=== PATIENT | male | born 1930 | race Caucasian/White ===

== ENCOUNTER 2017-08-22 09:48 | Inpatient (IN) | payer MEDICAID ==
[2017-08-22] MEDS: IPRATROPIUM (NEB) 0.5 MG/2.5 ML AMP INH (11:48)
[2017-08-22] MEDS: ALBUTEROL 0.5% (NEB) 2.5 MG/0.5 ML AMP INH (11:48)
[2017-08-22] MEDS: METHYLPREDNISOLONE 125 MG INJ IV (12:04)
[2017-08-22 12:44] LABS: ADD MAN DIFF? NO
[2017-08-22 12:47] LABS: BASOPHILS % 0.3 % (0.0-2.0); EOSINOPHILS # 0.9 10^3/ul (0.0-0.5); EOSINOPHILS % 6.6 % (0.0-7.0); HEMATOCRIT 40.7 % (42.0-52.0); HEMOGLOBIN 13.4 g/dl (14.0-18.0); LYMPHOCYTES # 0.9 10^3/ul (0.8-2.9); LYMPHOCYTES % 6.7 % (15.0-51.0); MEAN CORPUSCULAR HEMOGLOBIN 31.2 pg (29.0-33.0); MEAN CORPUSCULAR HGB CONC 32.9 g/dl (32.0-37.0); MEAN CORPUSCULAR VOLUME 94.7 fl (82.0-101.0); MEAN PLATELET VOLUME 10.8 fl (7.4-10.4); MONOCYTE # 1.3 10^3/ul (0.3-0.9); MONOCYTES % 9.9 % (0.0-11.0); NEUTROPHIL # 9.9 10^3/ul (1.6-7.5); PLATELET COUNT 286 10^3/UL (140-415); RED CELL DISTRIBUTION WIDTH 14.4 % (11.5-14.5)
[2017-08-22 12:51] LABS: INR 1.14; PROTIME 14.8 Sec (11.9-14.9); PT RATIO 1.2
[2017-08-22 12:52] LABS: ANION GAP 18 (8-16); BLOOD UREA NITROGEN 16 mg/dl (7-20); CALCIUM 9.9 mg/dl (8.4-10.2); CARBON DIOXIDE 25 mmol/L (21-31); CHLORIDE 101 mmol/L (97-110); CREATININE 0.95 mg/dl (0.61-1.24); GLUCOSE 156 mg/dl (70-220); PARTIAL THROMBOPLASTIN TIME 40.4 Sec (25.0-35.0); POTASSIUM 3.7 mmol/L (3.5-5.1); SODIUM 140 mmol/L (135-144)
[2017-08-22 13:03] LABS: B-TYPE NATRIURETIC PEPTIDE 1170 PG/ML (0-450); TROPONIN-I 0.024 ng/ml (0.00-0.12)
[2017-08-22] MEDS ORDERED: NA PHOSPHATE/BIPHOS 133 ML ENEMA PR (16:00)
[2017-08-22] MEDS ORDERED: NACL 0.9% 3 ML SYG IV (16:00)
[2017-08-22] MEDS ORDERED: hydrALAzine 20 MG INJ IV (16:00)
[2017-08-22] MEDS ORDERED: NITROGLYCERIN (SL) 0.4 MG TAB SL (16:00)
[2017-08-22] MEDS ORDERED: HYDROCODONE/APAP (5/325) TAB PO (16:00)
[2017-08-22] MEDS ORDERED: MAGNESIUM HYDROXIDE 30ML CUP PO (16:00)
[2017-08-22] MEDS ORDERED: morphine 2 MG INJ IV (16:00)
[2017-08-22] MEDS ORDERED: ALBUTEROL HFA 8 GM INHALER INH (16:00)
[2017-08-22] MEDS ORDERED: ONDANSETRON 4 MG INJ IV ×2 (16:00→19:30)
[2017-08-22] MEDS: LEVOFLOXACIN 750MG/D5W (PMX) 150 ML IVPB (16:43)
[2017-08-22] MEDS: FUROSEMIDE 20 MG INJ IV (16:45)
[2017-08-22 17:22] LABS: FREE T4 (FREE THYROXINE) 1.64 ng/dl (0.85-1.93)
[2017-08-22] MEDS ORDERED: ACETAMINOPHEN 325 MG TAB PO (19:30)
[2017-08-22 21:09] LABS: LACTIC ACID 1.9 mmol/L (0.5-2.0)
[2017-08-22] MEDS: ATORVASTATIN 10 MG TAB PO (22:55)
[2017-08-22] MEDS: SALMETEROL/FLUTICASONE 250/50 INHA INH (22:56)
[2017-08-22] MEDS: METHYLPREDNISOLONE 40 MG INJ IV (22:56)
[2017-08-22] MEDS: HEPARIN 5,000 UNIT/0.5 ML VIAL SC (23:00)
[2017-08-22] MEDS: INSULIN ASPART [NOVOLOG] 3 ML PEN SC ×2 (23:00→23:10)
[2017-08-23] MEDS: ALBUTEROL/IPRATROPIUM (NEB) 3 ML AMP HHN ×6 (00:52→20:52)
[2017-08-23] MEDS: INSULIN ASPART [NOVOLOG] 3 ML PEN SC ×6 (01:00→20:38)
[2017-08-23] MEDS: ACCU-CHEK XX (02:00)
[2017-08-23] MEDS: SOD CHLORIDE 0.9% 500 ML IV (02:45)
[2017-08-23] MEDS: METHYLPREDNISOLONE 40 MG INJ IV ×3 (04:57→22:27)
[2017-08-23 07:17] LABS: ADD MAN DIFF? NO
[2017-08-23 07:23] LABS: WHITE BLOOD COUNT 13.3 10^3/ul (4.8-10.8)
[2017-08-23 07:23] LABS: BASOPHILS % 0.1 % (0.0-2.0); HEMATOCRIT 37.8 % (42.0-52.0); HEMOGLOBIN 12.8 g/dl (14.0-18.0); LYMPHOCYTES # 0.7 10^3/ul (0.8-2.9); LYMPHOCYTES % 4.9 % (15.0-51.0); MEAN CORPUSCULAR HEMOGLOBIN 31.1 pg (29.0-33.0); MEAN CORPUSCULAR HGB CONC 33.9 g/dl (32.0-37.0); MEAN CORPUSCULAR VOLUME 91.7 fl (82.0-101.0); MEAN PLATELET VOLUME 10.2 fl (7.4-10.4); MONOCYTE # 0.5 10^3/ul (0.3-0.9); MONOCYTES % 3.6 % (0.0-11.0); NEUTROPHIL # 12.1 10^3/ul (1.6-7.5); NEUTROPHILS % 90.9 % (39.0-77.0); PLATELET COUNT 298 10^3/UL (140-415); RED BLOOD COUNT 4.12 10^6/ul (4.70-6.10); RED CELL DISTRIBUTION WIDTH 14.2 % (11.5-14.5)
[2017-08-23 07:41] LABS: LACTIC ACID 1.8 mmol/L (0.5-2.0)
[2017-08-23 07:43] LABS: ANION GAP 16 (8-16); BLOOD UREA NITROGEN 25 mg/dl (7-20); CALCIUM 9.1 mg/dl (8.4-10.2); CARBON DIOXIDE 24 mmol/L (21-31); CHLORIDE 104 mmol/L (97-110); CREATININE 0.93 mg/dl (0.61-1.24); GLUCOSE 208 mg/dl (70-220); MAGNESIUM 1.8 mg/dl (1.7-2.5); PHOSPHORUS 2.6 mg/dl (2.5-4.9); POTASSIUM 3.8 mmol/L (3.5-5.1); SODIUM 140 mmol/L (135-144)
[2017-08-23 07:57] LABS: HEMOGLOBIN A1C 6.4 % (0-5.9)
[2017-08-23] MEDS: FUROSEMIDE 20 MG INJ IV (08:37)
[2017-08-23] MEDS: LORATADINE 10 MG TAB PO (08:37)
[2017-08-23] MEDS: HEPARIN 5,000 UNIT/0.5 ML VIAL SC ×2 (09:00→20:33)
[2017-08-23] MEDS: SALMETEROL/FLUTICASONE 250/50 INHA INH ×2 (09:12→20:30)
[2017-08-23 09:23] LABS: LACTIC ACID 1.9 mmol/L (0.5-2.0)
[2017-08-23 10:00] LABS: LACTIC ACID 2.9 mmol/L (0.5-2.0)
[2017-08-23] MEDS: SOD CHLORIDE 0.45% 1,000 ML IV (11:31)
[2017-08-23 14:11] LABS: CHOL/HDL RATIO 2.8 RATIO; HDL CHOLESTEROL 50 mg/dl (31-75); LDL CHOLESTEROL,CALCULATED 83 mg/dl; TRIGLYCERIDES 55 mg/dl (0-149)
[2017-08-23 14:11] LABS: CHOLESTEROL 144 mg/dl (100-200)
[2017-08-23 14:41] LABS: THYROID STIMULATING HORMONE 0.075 MIU/L (0.465-4.680)
[2017-08-23 14:57] LABS: LACTIC ACID 2.7 mmol/L (0.5-2.0)
[2017-08-23] MEDS: LEVOFLOXACIN 750MG/D5W (PMX) 150 ML IVPB (17:35)
[2017-08-23 19:15] LABS: LACTIC ACID 2.9 mmol/L (0.5-2.0)
[2017-08-23] MEDS: ATORVASTATIN 10 MG TAB PO (20:30)
[2017-08-24] MEDS: ALBUTEROL/IPRATROPIUM (NEB) 3 ML AMP HHN ×6 (00:39→21:34)
[2017-08-24] MEDS: INSULIN ASPART [NOVOLOG] 3 ML PEN SC ×6 (00:58→20:50)
[2017-08-24] MEDS: SOD CHLORIDE 0.45% 1,000 ML IV (01:18)
[2017-08-24] MEDS: ACCU-CHEK XX (02:00)
[2017-08-24 02:05] LABS: LACTIC ACID 2.9 mmol/L (0.5-2.0)
[2017-08-24] MEDS: METHYLPREDNISOLONE 40 MG INJ IV (05:05)
[2017-08-24 08:19] LABS: ADD MAN DIFF? NO
[2017-08-24 08:37] LABS: BASOPHILS % 0.3 % (0.0-2.0); EOSINOPHILS % 0.3 % (0.0-7.0); HEMATOCRIT 40.1 % (42.0-52.0); HEMOGLOBIN 13.4 g/dl (14.0-18.0); LYMPHOCYTES # 0.8 10^3/ul (0.8-2.9); LYMPHOCYTES % 4.7 % (15.0-51.0); MEAN CORPUSCULAR HEMOGLOBIN 30.9 pg (29.0-33.0); MEAN CORPUSCULAR HGB CONC 33.4 g/dl (32.0-37.0); MEAN CORPUSCULAR VOLUME 92.6 fl (82.0-101.0); MEAN PLATELET VOLUME 10.6 fl (7.4-10.4); MONOCYTE # 0.6 10^3/ul (0.3-0.9); MONOCYTES % 3.5 % (0.0-11.0); NEUTROPHIL # 14.3 10^3/ul (1.6-7.5); NEUTROPHILS % 90.8 % (39.0-77.0); PLATELET COUNT 346 10^3/UL (140-415); RED BLOOD COUNT 4.33 10^6/ul (4.70-6.10); RED CELL DISTRIBUTION WIDTH 14.2 % (11.5-14.5)
[2017-08-24 08:37] LABS: WHITE BLOOD COUNT 15.8 10^3/ul (4.8-10.8)
[2017-08-24] MEDS: SALMETEROL/FLUTICASONE 250/50 INHA INH ×2 (08:42→20:47)
[2017-08-24] MEDS: GUAIFENESIN 20 MG/ML 5ML CUP PO ×3 (08:43→23:58)
[2017-08-24] MEDS: LORATADINE 10 MG TAB PO (08:44)
[2017-08-24 08:47] LABS: ANION GAP 22 (8-16); BLOOD UREA NITROGEN 32 mg/dl (7-20); CALCIUM 9.3 mg/dl (8.4-10.2); CARBON DIOXIDE 23 mmol/L (21-31); CHLORIDE 102 mmol/L (97-110); CREATININE 1.07 mg/dl (0.61-1.24); GLUCOSE 189 mg/dl (70-220); SODIUM 143 mmol/L (135-144)
[2017-08-24] MEDS: HEPARIN 5,000 UNIT/0.5 ML VIAL SC ×2 (08:49→20:49)
[2017-08-24 08:58] LABS: LACTIC ACID 2.6 mmol/L (0.5-2.0)
[2017-08-24] MEDS ORDERED: GLUCAGON 1 MG INJ IM (12:30)
[2017-08-24] MEDS ORDERED: DEXTROSE 50% 50 ML SYRINGE IV ×2 (12:30)
[2017-08-24] MEDS ORDERED: GLUCOSE GEL 15 GRAM TUBE PO ×2 (12:30)
[2017-08-24] MEDS ORDERED: GLUCOSE GEL 15 GRAM TUBE BUCCAL (12:30)
[2017-08-24 12:53] LABS: LACTIC ACID 3.1 mmol/L (0.5-2.0)
[2017-08-24] MEDS: INFLUENZA VIRUS VACCINE 0.5 ML (DISPENSING) IM* (14:12)
[2017-08-24] MEDS: LEVOFLOXACIN 750MG/D5W (PMX) 150 ML IVPB (15:09)
[2017-08-24] MEDS: CEPASTAT LOZENGE MT ×2 (15:23→23:58)
[2017-08-24 19:59] LABS: LACTIC ACID 3.5 mmol/L (0.5-2.0)
[2017-08-24] MEDS: ATORVASTATIN 10 MG TAB PO (20:47)
[2017-08-25] MEDS: INSULIN ASPART [NOVOLOG] 3 ML PEN SC ×5 (00:12→21:00)
[2017-08-25] MEDS: ACETAMINOPHEN 325 MG TAB PO (00:24)
[2017-08-25 01:10] LABS: ADD UMIC NO; UR ASCORBIC ACID NEGATIVE (NEGATIVE); UR BILIRUBIN (Dip) NEGATIVE (NEGATIVE); UR BLOOD (Dip) NEGATIVE (NEGATIVE); UR CLARITY CLEAR (CLEAR); UR COLOR YELLOW (YELLOW); UR GLUCOSE (Dip) NEGATIVE (NEGATIVE); UR KETONES (Dip) NEGATIVE (NEGATIVE); UR LEUKOCYTE ESTERASE (Dip) NEGATIVE Leu/ul (NEGATIVE); UR NITRITE (Dip) NEGATIVE (NEGATIVE); UR SPECIFIC GRAVITY (Dip) 1.016 (1.003-1.030); UR TOTAL PROTEIN (Dip) NEGATIVE (NEGATIVE); UR UROBILINOGEN (Dip) NEGATIVE (NEGATIVE)
[2017-08-25] MEDS: ALBUTEROL/IPRATROPIUM (NEB) 3 ML AMP HHN ×6 (01:28→20:35)
[2017-08-25] MEDS: ACCU-CHEK XX (02:00)
[2017-08-25] MEDS: SALMETEROL/FLUTICASONE 250/50 INHA INH ×2 (08:07→21:41)
[2017-08-25] MEDS: LORATADINE 10 MG TAB PO (08:08)
[2017-08-25] MEDS: predniSONE 20 MG TAB PO (08:08)
[2017-08-25] MEDS: GUAIFENESIN 20 MG/ML 5ML CUP PO ×3 (08:14→19:22)
[2017-08-25] MEDS: HEPARIN 5,000 UNIT/0.5 ML VIAL SC ×2 (08:23→21:56)
[2017-08-25 09:00] LABS: ADD MAN DIFF? NO
[2017-08-25 09:08] LABS: WHITE BLOOD COUNT 9.8 10^3/ul (4.8-10.8)
[2017-08-25 09:08] LABS: BASOPHILS % 0.1 % (0.0-2.0); EOSINOPHILS # 0.2 10^3/ul (0.0-0.5); EOSINOPHILS % 1.7 % (0.0-7.0); HEMATOCRIT 39.4 % (42.0-52.0); LYMPHOCYTES % 10.7 % (15.0-51.0); MEAN CORPUSCULAR HEMOGLOBIN 30.7 pg (29.0-33.0); MEAN CORPUSCULAR VOLUME 93.1 fl (82.0-101.0); MONOCYTE # 1.1 10^3/ul (0.3-0.9); MONOCYTES % 11.4 % (0.0-11.0); NEUTROPHIL # 7.4 10^3/ul (1.6-7.5); NEUTROPHILS % 75.5 % (39.0-77.0); PLATELET COUNT 350 10^3/UL (140-415); RED BLOOD COUNT 4.23 10^6/ul (4.70-6.10); RED CELL DISTRIBUTION WIDTH 13.9 % (11.5-14.5)
[2017-08-25 09:28] LABS: LACTIC ACID 2.4 mmol/L (0.5-2.0)
[2017-08-25 10:12] LABS: ANION GAP 16 (8-16); BLOOD UREA NITROGEN 32 mg/dl (7-20); CARBON DIOXIDE 25 mmol/L (21-31); CHLORIDE 104 mmol/L (97-110); CREATININE 0.99 mg/dl (0.61-1.24); GLUCOSE 111 mg/dl (70-220); POTASSIUM 4.1 mmol/L (3.5-5.1); SODIUM 141 mmol/L (135-144)
[2017-08-25] MEDS: CEPASTAT LOZENGE MT (11:40)
[2017-08-25] MEDS: SOD CHLORIDE 0.45% 1,000 ML IV (11:41)
[2017-08-25 12:27] LABS: LACTIC ACID 2.3 mmol/L (0.5-2.0)
[2017-08-25 14:38] LABS: MAGNESIUM 1.9 mg/dl (1.7-2.5)
[2017-08-25] MEDS: LEVOFLOXACIN 750MG/D5W (PMX) 150 ML IVPB (15:33)
[2017-08-25 17:43] LABS: LACTIC ACID 2.6 mmol/L (0.5-2.0)
[2017-08-25] MEDS: ATORVASTATIN 10 MG TAB PO (21:41)
[2017-08-25 23:51] LABS: LACTIC ACID 1.4 mmol/L (0.5-2.0)
[2017-08-26] MEDS: ALBUTEROL/IPRATROPIUM (NEB) 3 ML AMP HHN ×4 (00:58→14:23)
[2017-08-26] MEDS: ACCU-CHEK XX (02:00)
[2017-08-26] MEDS: LORAZEPAM 2 MG INJ IV (02:12)
[2017-08-26] MEDS: LEVOFLOXACIN 750 MG TABLET PO (06:27)
[2017-08-26] MEDS: INSULIN ASPART [NOVOLOG] 3 ML PEN SC ×2 (07:55→11:50)
[2017-08-26] MEDS: predniSONE 20 MG TAB PO (08:15)
[2017-08-26] MEDS: LORATADINE 10 MG TAB PO (08:15)
[2017-08-26] MEDS: DOCUSATE SODIUM 100 MG CAP PO (08:15)
[2017-08-26] MEDS: SALMETEROL/FLUTICASONE 250/50 INHA INH (08:17)
[2017-08-26 08:27] LABS: ADD MAN DIFF? NO
[2017-08-26 08:37] LABS: BASOPHILS % 0.2 % (0.0-2.0); EOSINOPHILS # 0.9 10^3/ul (0.0-0.5); EOSINOPHILS % 8.5 % (0.0-7.0); HEMATOCRIT 37.4 % (42.0-52.0); HEMOGLOBIN 12.7 g/dl (14.0-18.0); LYMPHOCYTES # 1.2 10^3/ul (0.8-2.9); LYMPHOCYTES % 11.5 % (15.0-51.0); MEAN CORPUSCULAR HEMOGLOBIN 31.1 pg (29.0-33.0); MEAN CORPUSCULAR VOLUME 91.4 fl (82.0-101.0); MEAN PLATELET VOLUME 10.1 fl (7.4-10.4); MONOCYTE # 1.2 10^3/ul (0.3-0.9); MONOCYTES % 11.6 % (0.0-11.0); NEUTROPHIL # 6.7 10^3/ul (1.6-7.5); NEUTROPHILS % 65.9 % (39.0-77.0); PLATELET COUNT 336 10^3/UL (140-415); RED BLOOD COUNT 4.09 10^6/ul (4.70-6.10)
[2017-08-26 08:37] LABS: WHITE BLOOD COUNT 10.2 10^3/ul (4.8-10.8)
[2017-08-26] MEDS: HEPARIN 5,000 UNIT/0.5 ML VIAL SC (08:43)
[2017-08-26 08:55] LABS: ANION GAP 13 (8-16); BLOOD UREA NITROGEN 25 mg/dl (7-20); CALCIUM 8.5 mg/dl (8.4-10.2); CARBON DIOXIDE 27 mmol/L (21-31); CHLORIDE 104 mmol/L (97-110); CREATININE 0.92 mg/dl (0.61-1.24); GLUCOSE 114 mg/dl (70-220); POTASSIUM 3.3 mmol/L (3.5-5.1); SODIUM 141 mmol/L (135-144)
[2017-08-26 09:03] LABS: LACTIC ACID 1.5 mmol/L (0.5-2.0)
[2017-08-26] MEDS: POTASSIUM CHLORIDE (SR) 20 MEQ TAB PO (12:23)
== END 2017-08-26 16:10 | disposition home health service (06) | DRG 871 ==
LOC: E/R 09:48 → TEL 19:25
DX: A41.9 Sepsis, unspecified organism (principal); I50.31 Acute diastolic (congestive) heart failure; I47.2 Ventricular tachycardia; J44.1 Chronic obstructive pulmonary disease with (acute) exacerbation; E87.2 Acidosis; J45.901 Unspecified asthma with (acute) exacerbation; I11.0 Hypertensive heart disease with heart failure; E11.9 Type 2 diabetes mellitus without complications; I49.3 Ventricular premature depolarization; J06.9 Acute upper respiratory infection, unspecified; E78.5 Hyperlipidemia, unspecified; E87.6 Hypokalemia; Z87.891 Personal history of nicotine dependence; Z79.84 Long term (current) use of oral hypoglycemic drugs
CPT/HCPCS: 36415; 71045; 80048; 80061; 81003; 82962; 83036; 83605; 83735; 83880; 84100; 84439; 84443; 84484; 85025; 85610; 85730; 87040; 87400; 90686; 93005; 93306; 94640; 94644; 96374; 96375; 97110; 97116; 97162; 97165; 97535; 99285-25; J1940

== ENCOUNTER 2018-08-10 06:53 | Emergency (ER) | payer OTHER, MEDICAID ==
[2018-08-10 07:51] LABS: ADD MAN DIFF? NO
[2018-08-10 07:53] LABS: WHITE BLOOD COUNT 8.1 10^3/ul (4.8-10.8)
[2018-08-10 07:53] LABS: BASOPHIL # 0.1 10^3/ul (0.0-0.1); BASOPHILS % 0.6 % (0.0-2.0); EOSINOPHILS % 12.8 % (0.0-7.0); HEMATOCRIT 42.1 % (42.0-52.0); LYMPHOCYTES # 2.1 10^3/ul (0.8-2.9); LYMPHOCYTES % 25.8 % (15.0-51.0); MEAN CORPUSCULAR HEMOGLOBIN 31.4 pg (29.0-33.0); MEAN CORPUSCULAR HGB CONC 33.3 g/dl (32.0-37.0); MEAN CORPUSCULAR VOLUME 94.4 fl (82.0-101.0); MEAN PLATELET VOLUME 10.3 fl (7.4-10.4); MONOCYTE # 0.8 10^3/ul (0.3-0.9); MONOCYTES % 10.1 % (0.0-11.0); NEUTROPHIL # 4.1 10^3/ul (1.6-7.5); NEUTROPHILS % 50.3 % (39.0-77.0); PLATELET COUNT 302 10^3/UL (140-415); RED BLOOD COUNT 4.46 10^6/ul (4.70-6.10); RED CELL DISTRIBUTION WIDTH 13.2 % (11.5-14.5)
[2018-08-10 08:12] LABS: INR 0.97; PARTIAL THROMBOPLASTIN TIME 31.8 Sec (23.0-35.0)
[2018-08-10 08:12] LABS: HEMOGLOBIN A1C 6.2 % (0-5.9)
[2018-08-10 08:15] LABS: ALANINE AMINOTRANSFERASE 21 IU/L (13-69); ALBUMIN 4.1 g/dl (3.3-4.9); ALKALINE PHOSPHATASE 64 IU/L (42-121); AMYLASE 94 U/L (11-123); ANION GAP 10 (5-13); ASPARTATE AMINO TRANSFERASE 35 IU/L (15-46); BILIRUBIN,INDIRECT 0.2 mg/dl (0-1.1); BILIRUBIN,TOTAL 0.2 mg/dl (0.2-1.3); BLOOD UREA NITROGEN 16 mg/dl (7-20); CALCIUM 9.4 mg/dl (8.4-10.2); CARBON DIOXIDE 29 mmol/L (21-31); CHLORIDE 101 mmol/L (97-110); CREATININE 1.13 mg/dl (0.61-1.24); GLUCOSE 112 mg/dl (70-220); LIPASE 29 U/L (23-300); SODIUM 140 mmol/L (135-144); TOTAL PROTEIN 8.2 g/dl (6.1-8.1)
[2018-08-10] MEDS: IPRATROPIUM (NEB) 0.5 MG/2.5 ML AMP NEB (08:23)
[2018-08-10] MEDS: ALBUTEROL 0.083% (NEB) 2.5 MG/3 ML AMP NEB (08:23)
[2018-08-10 08:26] LABS: B-TYPE NATRIURETIC PEPTIDE 165 PG/ML (0-450); TROPONIN-I 0.016 ng/ml (0.000-0.120)
== END 2018-08-10 09:40 | disposition home or self-care (01) ==
LOC: E/R 06:53
DX: E10.621 Type 1 diabetes mellitus with foot ulcer (principal); L97.411 Non-pressure chronic ulcer of right heel and midfoot limited to breakdown of skin; L03.115 Cellulitis of right lower limb; J45.909 Unspecified asthma, uncomplicated; J44.9 Chronic obstructive pulmonary disease, unspecified; I10 Essential (primary) hypertension; R07.9 Chest pain, unspecified; Z87.891 Personal history of nicotine dependence; Z79.84 Long term (current) use of oral hypoglycemic drugs
CPT/HCPCS: 71045; 73630; 80053; 82150; 83036; 83690; 83880; 84484; 85025; 85610; 85730; 87040; 93005; 94664; 99285-25